=== PATIENT | female | born 1975 | race Caucasian/White ===

== ENCOUNTER 2020-12-16 08:04 | Inpatient (IN) | payer OTHER ==
[~2020-12-16] VITALS: Ht 172.7 cm; Wt 88.9 kg
--- NOTE | ~2020-12-16 | O ---
[facility] [place] [address] OPERATIVE REPORT Name: KAYLEN CHADWICK Room #: 438-P ADM IN M.R.#: [id number] Admission: 12/16/20 Attend Phys: Jerrell Jordan MD Discharge: Date of : 71 Report #: [id number] THIS REPORT FOR: cc: FAM - No family physician/PCP FAM - No family physician/PCP Deann Ribeiro MD ~ DOC #: [id number] Deann Ribeiro MD DATE OF SERVICE: 12/16/2020 PREOPERATIVE DIAGNOSIS: Left index finger subcutaneous abscess. POSTOPERATIVE DIAGNOSIS: Left index finger subcutaneous abscess. PROCEDURE PERFORMED: Incision and debridement, left index finger subcutaneous abscess. SURGEON: Deann Ribeiro MD ANESTHESIA: Local anesthesia. ESTIMATED BLOOD LOSS: Minimal. INDICATIONS: The patient is a 45-year-old female with the above-mentioned diagnosis. She elects for operative treatment. The risks, benefits, alternatives and complications were discussed including but not limited to inability to resolve the infection necessitating another procedure, wound healing problems. We discussed her diabetes complicates, her wound healing problems and increased risk for infection. Informed consent was obtained. The correct extremity was identified and labeled by myself after verbal confirmation with the patient as well as visual confirmation and signed informed consent. DESCRIPTION OF PROCEDURE: Under sterile conditions, the dorsal subcutaneous tissue was infiltrated proximally with 10 mL of a mixture of closure with 0.25% Marcaine and 1% lidocaine. After adequate anesthesia was obtained, an oblique incision was made over the small opening on the dorsal aspect of the mid P1. Dissection was carried down through subcutaneous tissue. No definite large collection of fluid was obtained. The area was then thoroughly debrided with a chlorhexidine scrub brush and Betadine as well and thoroughly irrigated with 500 mL of saline. The wound was then dressed with sterile gauze. She was placed in a bulky dressing. All fingers were pink with brisk capillary refill. The patient tolerated this well. Deann Ribeiro MD VAD/ALL [address] [address] OPERATIVE REPORT Name: FARRUKHKAYLEN MORENITA Room #: 438-P [facility] IN M.R.#: [id number] Admission: 12/16/20 Attend Phys: Jerrell Jordan MD Discharge: Date of : 71 Report #: [id number] By: [id number] Deann Ribeiro MD /nt
--- NOTE | ~2020-12-16 | HC ---
[facility] [place] [address] CONSULTATION Name: KAYLEN CHADWICK Room #: 438-P ADM IN M.R.#: [id number] Admission: 12/16/20 Attend Phys: Jerrell Jordan MD Discharge: Date of : 71 Report #: [id number] THIS REPORT FOR: cc: FAM - No family physician/PCP FAM - No family physician/PCP Deann Ribeiro MD ~ DOC #: [id number] Deann Ribeiro MD DATE OF SERVICE: 12/16/2020 REASON FOR CONSULTATION: Left index finger abscess. HISTORY OF PRESENT ILLNESS: The patient is a 45-year-old female who reportedly does not know what happened to her left index finger. She has had increasing pain for the last few days, started as a small pimple type area and gradually worsened. She reports pain radiating up to her arm. REVIEW OF SYSTEMS: MUSCULOSKELETAL: Denies other skin problems in her extremities. NEUROLOGIC: Denies numbness or tingling. PAST MEDICAL HISTORY: Significant for uncontrolled diabetes, hypothyroidism, hypertension. MEDICATIONS: Reported medications are cetirizine, sertraline. ALLERGIES: PENICILLIN. SOCIAL HISTORY: She is right hand dominant. 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 She currently works at an outside type job and is planning to start working at [employer] tomorrow. Denies smoking or drinking alcohol. PAST SURGICAL HISTORY: She had left wrist surgery remotely. LABORATORY DATA: Done on the day of admission show white blood cell count 8.8, hemoglobin 13.0, hematocrit 38.3, platelet count 200. Her sodium is slightly low at 135. Glucose is elevated at 437. Toxicology is positive for methamphetamines. PHYSICAL EXAMINATION: GENERAL: The patient is awake, alert and oriented. She interacts appropriately. She has a moderate amount of distress. She is lying on the hospital cart. VITAL SIGNS: Most recent vital signs show temperature of 36.9, heart rate 86, respiratory rate 20, blood pressure 154/82, pulse oximetry 95% on room air. [facility] [address] [place] [address] CONSULTATION Name: KAYLEN CHADWICK Room #: 438-P ADM IN .R.#: [id number] Admission: 12/16/20 Attend Phys: Jerrell Jordan MD Discharge: Date of : 71 Report #: [id number] EXTREMITIES: Examination of her left upper extremity. She has a small what appears to be a ruptured bulla measuring 2 mm dorsal aspect of the P1 on the index finger with a surrounding rim of erythema for approximately 2 cm total. There is a white drainage. There is some mild erythema extending up to her wrist. She is distally neurovascularly intact. Has pain with motion and significant tenderness. RADIOGRAPHIC DATA: AP, lateral and oblique view of the left hand did not show any bony abnormality. IMPRESSION AND PLAN: Left index finger abscess. Recommend incision and debridement here in the Emergency Department. Please see separate procedure note for that. We discussed the risks, benefits, alternatives, potential complications including but not limited to infection, not being able to resolve the infection necessitating more surgery and wound healing problems. We discussed her poorly controlled diabetes increases her risk of wound healing problems and infection. She verbalized understanding, questions were encouraged and answered to the best of my ability. MD RENETTA [place]/BALDEV By: 1000 11 Deann Ribeiro MD /nt
[~2020-12-16 08:04] MED LIST: FLONASE 0.05%50 MCG NASAL; SERTRALINE HCL50 MG PO; ZOFRAN ODT4 MG PO; ZYRTEC10 M5 PO
[2020-12-16 08:11] VITALS: BP 163/95
[2020-12-16 09:02] LABS: AMP/METHAMP POSITIVE (Negative); BARBITURATES Negative (Negative); BENZODIAZEPINES Negative (Negative); COCAINE Negative (Negative); METHADONE Negative (Negative); OPIATES Negative (Negative); PCP Negative (Negative)
[2020-12-16 09:49] LABS: ABSOLUTE NEUTROPHILS 6.3 thou/uL (1.4-8.2); BASOPHILS 0.9 % (0.0-2.0); HEMATOCRIT 38.3 % (37.0-47.0); LYMPHOCYTES 18.8 % (24.0-44.0); MCV 88.3 fL (80.0-100.0); MONOCYTES 6.2 % (1.0-8.0); PLATELET COUNT 200 thou/uL (150-400); POLYS 72.1 % (36.0-66.0); RBC 4.34 mil/uL (4.20-5.00); RDW 13.5 % (10.5-14.5); WBC 8.8 thou/uL (4.0-11.0)
[2020-12-16 09:50] LABS: CALCIUM 8.2 mg/dL (8.5-10.1); CREATININE 0.8 mg/dL (0.6-1.0); POTASSIUM 4.2 mmol/L (3.5-5.1)
--- NOTE | 2020-12-16 09:52 | NUR ---
PAGED FOR LAB TO COLLECT BC SET #2.
[2020-12-16 12:10] VITALS: BP 149/89
--- NOTE | 2020-12-16 16:09 | NUR ---
PATIENT ALERT AND ORINTED X4, ON ROOM AIR, ARRIVED TO ROOM 438 FROM ER AROUND 1230, PAIN MEDICATION GIVEN PER MAR, DENIES NAUSEA, UP AD KAMILA IN ROOM, VITAL SIGNS STABLE, AND AFBRIELE. CALL LIGHT WITH IN REACH, WILL CONTINUE TO MONITOR.
[2020-12-16] MEDS ORDERED: ABILIFY MAINTE300 M1 IM (17:38)
[2020-12-16 18:03] VITALS: BP 136/91
[2020-12-16 19:06] VITALS: BP 139/82
[2020-12-17 04:32] VITALS: BP 138/73
--- NOTE | 2020-12-17 04:43 | NUR ---
Assumed pt care at 1900. A/OX4,VSS. C/o left hand/headache medicated per EMAR with relief noted. Up ad akren,encouraged to call for help as needed and agreeable to. Continent of B&B. PIV patent on right hand SL.Resting quietly at this time no distress noted,will continue to monitor pt.
[2020-12-17 05:33] LABS: HEMATOCRIT 35.2 % (37.0-47.0); HEMOGLOBIN 11.9 gm/dL (12.0-15.0); MCH 29.9 pg (26.0-34.0); MCHC 33.9 g/dL (28.0-37.0); MCV 88.3 fL (80.0-100.0); RBC 3.98 mil/uL (4.20-5.00); RDW 13.8 % (10.5-14.5); WBC 6.9 thou/uL (4.0-11.0)
[2020-12-17 05:48] LABS: CALCIUM 7.7 mg/dL (8.5-10.1); CREATININE 0.6 mg/dL (0.6-1.0); MAGNESIUM 1.9 mg/dL (1.8-2.4); POTASSIUM 3.5 mmol/L (3.5-5.1)
[2020-12-17 08:01] VITALS: BP 132/79
--- NOTE | 2020-12-17 09:20 | NUR ---
ORDERS RECEIVED FOR EVAL AND TREAT ON Pt WITH FINGER ABCESS. Pt IS UP AD KAMILA AND HAVING NO DIFFICULTY WITH MOBILITY. SPOKE WITH Pt WHO DECLINES A FORMAL P.T. EVAL SAYING IT'S HER FINGER AND NOTHING ELSE
--- NOTE | 2020-12-17 09:29 | NUR ---
RECEIVED ORDER FOR OT EVALUATION, ADMITTED WITH A 2ND FINGER ABSCESS. PATIENT'S HAND WRAPPED IN GAUZE, ABLE TO WIGGLE HER FINGERS. PATIENT WILL POSSIBLY NEED OUTPATIENT IN THE FUTURE IF SHE HAS ANY ROM DEFICITS. PATIENT IS UP AD KAMILA, DENIES ANY ADL DEFICITS, WON'T PERFORM A FORMAL EVALUATION.
--- NOTE | 2020-12-17 11:54 | HC ---
[facility] [place] [address] CONSULTATION Name: KAYLEN CHADWICK Room #: 438-P ADM IN M.R.#: [id number] Admission: 12/16/20 Attend Phys: Jerrell Jordan MD Discharge: Date of : 71 Report #: [id number] THIS REPORT FOR: cc: FAM - No family physician/PCP FAM - No family physician/PCP Reji Soto MD ~ DOC #: [id number] Reji Soto MD DATE OF SERVICE: 12/17/2020 INFECTIOUS DISEASE CONSULTATION ATTENDING PHYSICIAN: Dr. Jordan. REASON FOR EVALUATION: Left second finger skin and soft tissue infection with abscess. HISTORY OF PRESENT ILLNESS: Chart reviewed. The patient examined. This is a 45-year-old woman with history of schizophrenia and bipolar disease, illicit drug use, who apparently developed an erythematous papular type lesion over the left second finger, over the course of the previous few days, had increase in pain extending up the distal left upper extremity, not clear that she had fevers, chills, somewhat difficult to ascertain details, perhaps had some poor appetite with p.o. intake. Denies significant pulmonary or gastrointestinal related complaints. She was evaluated. Plain films of the hand did not show any bony changes. Drug screen was positive for amphetamine/methamphetamine. Lactic acid was normal range at 1.2. Sed rate of 30. Blood sugar was markedly elevated, initially 384. Did undergo operative debridement to the left index finger, felt to have a subcutaneous abscess. Cultures in progress. Gram stain did show few Gram-positive cocci and it is confirmed to have Staph aureus. She was empirically placed on antibiotics with vancomycin. ALLERGIES: LISTED TO PENICILLINS, WHICH SHE DESCRIBES SWELLING OF HER MOUTH AND THROAT. CURRENT MEDICATIONS: Include ranitidine, insulin lispro, morphine, tramadol, ondansetron, vancomycin. PAST MEDICAL HISTORY: Perhaps new onset diabetes mellitus, history of schizophrenia, bipolar disease. SOCIAL HISTORY: Illicit drug use with preference for methamphetamine. Does not smoke tobacco. No ethanol. FAMILY HISTORY: Noncontributory. [facility] [address] [place] [address] CONSULTATION Name: KAYLEN CHADWICK Room #: 438-P [facility] IN M.R.#: [id number] Admission: 12/16/20 Attend Phys: Jerrell Jordan MD Discharge: Date of : 71 Report #: [id number] REVIEW OF SYSTEMS: Somewhat limited, otherwise unremarkable. PHYSICAL EXAMINATION: GENERAL: She appears somewhat chronically ill, undernourished. She is lying in a left lateral decubitus position, just inclined to engage, appears somewhat chronically ill and undernourished. VITAL SIGNS: Temperature 97.9, pulse 75, respirations 18, blood pressure 132/79. SKIN: Warm, dry, no rashes. HEENT: Normocephalic. Extraocular muscles intact. NECK: Supple. LUNGS: Diminished breath sounds, otherwise clear. HEART: Regular, do not appreciate a murmur. ABDOMEN: Mildly distended, somewhat firm, nontender. EXTREMITIES: No cyanosis. SKIN. A dressing over the left hand. GENITOURINARY AND RECTAL: Deferred. LABORATORY DATA: Culture with growth of Staphylococcus aureus. Blood cultures sterile thus far. Sed rate 26. Electrolytes: Sodium 139, potassium 3.5, chloride 105, bicarbonate 25, anion gap of 9, BUN and creatinine 15 and 0.6. Fasting glucose of 240. GFR of 107. CBC: White count 6.9, H and H of 11.9 and 35.2, platelets of 191. Operative report was reviewed. I and D of the left index finger subcutaneous abscess. ASSESSMENT: 1. Left index finger skin and soft tissue infection with abscess secondary to Staphylococcus aureus. 2. New diagnosis of diabetes mellitus. 3. Schizophrenia. 4. Bipolar disease. 5. Malnutrition. PLAN: We will continue empiric therapy with vancomycin, pending susceptibilities. Continue wound care as prescribed by Dr. Ribeiro. She will need additional instruction about diabetes, whether this is simply hyperglycemia in the setting of infection, seems less likely given the high values may have been something that has been undiagnosed and she has not seen a physician in excess of a year. We will monitor expectantly and add incentive spirometry. Also, perhaps at risk for drug withdrawal as well. Reji Soto MD [place] [address] CONSULTATION Name: KAYLEN CHADWICK Room #: 438-P ADM IN M.R.#: [id number] Admission: 12/16/20 Attend Phys: Jerrell Jordan MD Discharge: Date of : 71 Report #: [id number] <ELECTRONICALLY SIGNED> By: Reji Soto MD 12/17/20 1154 0929 1020 Reji Soto MD /nt
--- NOTE | 2020-12-17 12:29 | NUR ---
ASSESSMENT: CM REVIEWED CHART AND MET WITH PATIENT AT THE BEDSIDE. PT IS ALERT AND ORIENTED X4. PT WAS ADMITTED DUE TO LEFT POINTER FINGER PAIN/INFECTION. PT REQUIRED I &D AND IS CURRENTLY ON IV ANBX AND ID IS FOLLOWING. PT ALSO HAS HX OF METH USE. PT REPORTS LIVING IN AN APT WITH HER FIANCE. PT REPORTS HAVING ABOUT 3 FLIGHTS OF STEPS WITH HANDRAILS TO ENTER. PT REPORTS BEING FULLY INDEPENDENT WITH ADLS AND AMBULATION. PT REPORTS NO HAVING INSURANCE OR A PCP AT THIS TIME. PT STATES SHE USED TO SEE DR. FONSECA AT [facility] BUT HAS NOT FOLLOWED UP WITH MEDICAL CARE IN SOME TIME. PT WAS ALSO RECENTLY DIAGNOSED DIABETIC. CM DISCUSSED IMPORTANCE OF FOLLOW UP CARE AND ALSO PROVIDED PATIENT WITH [facility], FIND A PHYSICIAN RESOURCE SHEET, AND [facility]. CM REQUESTED LES TO FOLLOW PATIENT POSSIBLE AUBRIE SHE MAY REQUIRE WOUND CARE. CM WILL CONTINUE TO FOLLOW TO ASSIST NEEDED.
[2020-12-17 16:54] VITALS: BP 119/69
--- NOTE | 2020-12-17 18:23 | NUR ---
PATIENT ALERT AND ORINTED X4, ON ROOM AIR, UP AD KAMILA, PAIN MEDICATION GIVEN PER MAR, TOLERATING DIET WELL, VITALS STABLE, AND AFBRILE. CALL LIGHT WITH IN REACH, WILL CONTINUE TO MONITOR.
[2020-12-17 19:14] VITALS: BP 145/89
--- NOTE | 2020-12-18 02:32 | NUR ---
ASSUMED CARE AT 1900. PT IS A/O X4 AND IS UP AD KAMILA. VSS AFEBRILE. C/O PAIN TO LEFT HAND. PRN PAIN MEDICATION PROVIDED DIRECTED. DRSG TO LEFT HAND C/D/I. CALL LIGHT IS WITHIN REACH. PT APPEARS WITHDRAWN AND DROWSY THIS NOC. WILL CONTINUE TO MONITOR.
[2020-12-18 04:22] VITALS: BP 133/78
[2020-12-18 08:12] VITALS: BP 143/84
[2020-12-18] MEDS ORDERED: BACTRIM DS TAB1 EAC1 PO (11:14)
[2020-12-18] MEDS ORDERED: METFORMIN HCL500 MG PO (11:14)
[2020-12-18 12:03] VITALS: BP 143/84
--- NOTE | 2020-12-18 13:03 | NUR ---
RN WENT OVER ALL DISCHARGE TEACHING AND ALL QUESTIONS ANSWERED, IV OUT, PATIENT STATED SHE STATED SHE COULD DO HER OWN DRESSING CHANGES, PATIENT CALL FOR A RIDE FOR DISCHARGE.
--- NOTE | 2020-12-18 13:22 | NUR ---
on-going assessment: CM REVIEWED CHART AND SPOKE WITH PATIENT. CM DISCUSSED THAT CM CAN REACH OUT TO SEE IF HH CAN DO AUBRIE VISITS FOR HER TO HELP WITH WOUND CARE. PT STATING SHE DOES NOT NEED THIS AND WILL DO IT ON HER OWN AND CAN GET HER OWN SUPPLIES. PT HAS ORDERS TO DISCHARGE HOME TODAY WITH NO NEEDS. PT PREVIOUSLY GIVEN OUTPATIENT RESOURCE PACKET FOR FOLLOW UP IF NEEDED. CASE CLOSED.
--- NOTE | 2020-12-18 14:38 | NUR ---
PATIENT WALKED OUT WITH RN AND WILL RETURN TO FLOOR TOMORROW FOR A NOTE BEING HOSPITALIZED.
== END 2020-12-18 15:10 | disposition home or self-care (01) | DRG 580 ==
LOC: ER 08:04 → EROBS 11:47 → 4S 12:08
PROVIDERS: Emergency Medicine; ADMIT Internal Medicine; ATTEND Internal Medicine
PROC: 0JBJ0ZZ Excision of Right Hand Subcutaneous Tissue and Fascia, Open Approach (ICD-10-PCS; principal; 2020-12-16)
DX: L02.512 Cutaneous abscess of left hand (principal); L03.114 Cellulitis of left upper limb; E46 Unspecified protein-calorie malnutrition; F32.9 Major depressive disorder, single episode, unspecified; L02.511 Cutaneous abscess of right hand; E78.5 Hyperlipidemia, unspecified; E03.9 Hypothyroidism, unspecified; E11.65 Type 2 diabetes mellitus with hyperglycemia; F15.10 Other stimulant abuse, uncomplicated; I10 Essential (primary) hypertension; B95.61 Methicillin susceptible Staphylococcus aureus infection as the cause of diseases classified elsewhere; F31.9 Bipolar disorder, unspecified; F20.9 Schizophrenia, unspecified; Z71.51 Drug abuse counseling and surveillance of drug abuser; Z88.0 Allergy status to penicillin; Z68.29 Body mass index [BMI] 29.0-29.9, adult; Z91.19 Patient's noncompliance with other medical treatment and regimen
CPT/HCPCS: 10195